=== PATIENT | female | born 1935 | race Two or more races ===

== ENCOUNTER 2022-10-09 04:39 | Inpatient (IN) | payer MEDICARE, OTHER ==
[~2022-10-09] VITALS: Ht 152.4 cm; Wt 54.0 kg
[2022-10-09 06:10] VITALS: PULSE 75; RESP 18; O2SAT 97
[2022-10-09 06:51] LABS: Hemoglobin 13.4 g/dL (12.2-16.2); Mean Corpuscular Hgb Conc. 33.3 g/dL (32.0-36.0)
[2022-10-09 06:53] LABS: Hematocrit 40.2 % (36.0-46.0); Mean Corpuscular Hemoglobin 29.4 pg (28.0-32.0); Mean Corpuscular Volume 88.3 fL (80.0-100.0); Red Blood Cells 4.56 10^6/uL (4.0-5.20); Red Cell Distribution Width 17.6 % (11.8-14.3)
[2022-10-09 07:03] LABS: Albumin 2.3 g/dL (3.4-5.0); Calcium 7.4 mg/dL (8.5-10.1); Magnesium 1.8 mg/dL (1.6-2.6); Potassium 3.3 mmol/L (3.5-5.1)
[2022-10-09 07:07] LABS: BUN/Creatinine Ratio 18.4 (10.0-20.0); Bilirubin, Total 0.8 mg/dL (0.2-1.0); Total Protein 5.2 g/dL (6.4-8.2)
[2022-10-09 07:15] LABS: White Blood Cell 36.5 10^3/uL (4.4-10.8)
[2022-10-09] MEDS ORDERED: SODIUM CHLORIDE 0.9% 1,000 ML IV ONE (07:15)
[2022-10-09] MEDS ORDERED: SODIUM CHLORIDE 0.9% 500 ML IVB ONE (07:15)
[2022-10-09 07:16] LABS: Basophils % (manual) 0 (0.0-2.0); Blast Cells 0; Eosinophils % (manual) 0 (0-7); Metamyelocytes % 0; Myelocytes % 0; Promyelocytes % 0; Reactive Lymphocytes 0
[2022-10-09 07:48] VITALS: PULSE 73; RESP 18; O2SAT 93
[2022-10-09 08:29] LABS: Urine Bacteria NONE SEEN /hpf (None Seen); Urine Blood Negative /uL (Negative); Urine Hyaline Cast MOD /lpf (0 - 2); Urine Mucus FEW (None Seen); Urine WBC 9 /hpf (0 - 5)
[2022-10-09 09:32] LABS: Band Neutrophils % (manual) 9; Lymphocytes % (manual) 3 (10.0-50.0); Monocytes % (manual) 4 (0-12)
[2022-10-09] MEDS ORDERED: VANCOMYCIN HCL 500MG/5ML ORAL SOL PO ONE (11:00)
[2022-10-09] MEDS ORDERED: metroNIDAZOLE 500MG/100ML 100 ML IV ONE (11:00)
[2022-10-09] MEDS ORDERED: POTASSIUM EFFERVESENT TAB 25 MEQ PO ONE (11:00)
[2022-10-09] MEDS ORDERED: MORPHINE SULFATE INJ 2 MG/ml SYRG IV PRN (12:30)
[2022-10-09] MEDS ORDERED: ACETAMINOPHEN 325 MG TAB PO PRN (12:30)
[2022-10-09] MEDS ORDERED: ONDANSETRON HCL 4 MG/2 ML VIAL IV PRN (12:30)
[2022-10-09] MEDS ORDERED: NITROGLYCERIN 0.4 MG SL TAB SL PRN (12:30)
[2022-10-09] MEDS ORDERED: POTA10TA51 PO (12:52)
[2022-10-09] MEDS ORDERED: OMEP20TA PO (12:52)
[2022-10-09] MEDS ORDERED: ATOR20TA50 PO (12:55)
[2022-10-09] MEDS ORDERED: CARV3.1240 PO (12:55)
[2022-10-09] MEDS ORDERED: FER325T PO (12:55)
[2022-10-09] MEDS ORDERED: LEVO25TA6 PO (12:55)
[2022-10-09] MEDS ORDERED: ASPI1TAB20 PO (12:55)
[2022-10-09] MEDS ORDERED: LOSA100T58 PO (12:55)
[2022-10-09] MEDS ORDERED: FURO20TA3 PO (12:55)
[2022-10-09] MEDS: metroNIDAZOLE 500MG/100ML 100 ML IV SCH ×2 (17:30→21:51)
[2022-10-09] MEDS: SODIUM CHLORIDE 0.9% 1,000 ML IV SCH (17:30)
[2022-10-09] MEDS: VANCOMYCIN HCL 125MG/5ML ORAL SOL PO SCH ×2 (17:32→22:00)
[2022-10-09 19:50] VITALS: PULSE 85; RESP 20; O2SAT 95
[2022-10-09] MEDS: CARVEDILOL 3.125 MG TAB PO SCH (21:53)
[2022-10-10] VITALS (8 sets, daily range): BP systolic 91–154; BP diastolic 51–66; PULSE 68–79; RESP 16–21; TEMP 97.5–98; O2SAT 93–94
[2022-10-10] MEDS: SODIUM CHLORIDE 0.9% 1,000 ML IV SCH ×2 (05:10→22:59)
[2022-10-10] MEDS: VANCOMYCIN HCL 125MG/5ML ORAL SOL PO SCH ×4 (06:00→22:59)
[2022-10-10 06:16] LABS: Hemoglobin 13.3 g/dL (12.2-16.2); Red Cell Distribution Width 17.5 % (11.8-14.3)
[2022-10-10 06:17] LABS: Calcium 7.3 mg/dL (8.5-10.1); Potassium 3.3 mmol/L (3.5-5.1)
[2022-10-10 06:23] LABS: Albumin 1.8 g/dL (3.4-5.0); Bilirubin, Total 0.6 mg/dL (0.2-1.0); Total Protein 4.9 g/dL (6.4-8.2)
[2022-10-10 06:29] LABS: Hematocrit 40.2 % (36.0-46.0); Mean Corpuscular Hemoglobin 29.4 pg (28.0-32.0); Mean Corpuscular Hgb Conc. 33.1 g/dL (32.0-36.0); Mean Corpuscular Volume 88.8 fL (80.0-100.0); Red Blood Cells 4.52 10^6/uL (4.0-5.20)
[2022-10-10 06:35] LABS: White Blood Cell 33.8 10^3/uL (4.4-10.8)
[2022-10-10 06:36] LABS: Basophils % (manual) 0 (0.0-2.0); Blast Cells 0; Eosinophils % (manual) 0 (0-7); Metamyelocytes % 0; Myelocytes % 0; Promyelocytes % 0; Reactive Lymphocytes 0
[2022-10-10] MEDS: metroNIDAZOLE 500MG/100ML 100 ML IV SCH ×3 (07:10→22:59)
[2022-10-10] MEDS: LEVOTHYROXINE SODIUM 25 MCG TAB PO SCH (07:16)
[2022-10-10 08:21] LABS: Band Neutrophils % (manual) 8; Lymphocytes % (manual) 3 (10.0-50.0); Monocytes % (manual) 3 (0-12)
[2022-10-10] MEDS: ASPirin-EC 81 mg tab PO SCH (09:13)
[2022-10-10] MEDS: FERROUS SULFATE 325mg EC TAB PO SCH (09:14)
[2022-10-10] MEDS: PANTOPRAZOLE 40 MG TAB PO SCH (09:15)
[2022-10-10] MEDS: ATORVASTATIN 20 MG TAB PO SCH (09:16)
[2022-10-10] MEDS: LOSARTAN POTASSIUM 50 MG TAB PO SCH (09:18)
[2022-10-10] MEDS: CARVEDILOL 3.125 MG TAB PO SCH ×2 (09:18→23:01)
[2022-10-10] MEDS ORDERED: ONDANSETRON HCL 4 MG/2 ML VIAL ONE (09:49)
[2022-10-10] MEDS ORDERED: FLORASTOR (S. BOULARDII) 250 MG CAP PO SCH (10:00)
[2022-10-10] MEDS ORDERED: VANCOMYCIN PER PHARMACY 0 MG IV SCH (12:45)
[2022-10-10] MEDS ORDERED: VANCOMYCIN 1GM/250ML 250 ML IV ONE (12:45)
[2022-10-10] MEDS ORDERED: cefTRIAXone 1GM/50ML D5W 50 ML IV ONE (12:45)
[2022-10-10] MEDS: FLORASTOR (S. BOULARDII) 250 MG CAP PO SCH (22:59)
[2022-10-11] VITALS (7 sets, daily range): BP systolic 104–139; BP diastolic 49–71; PULSE 54–71; RESP 18–20; TEMP 97.7–98; O2SAT 93–96
[2022-10-11 03:24] LABS: BUN/Creatinine Ratio 28.2 (10.0-20.0); Calcium 7.2 mg/dL (8.5-10.1); Magnesium 1.9 mg/dL (1.6-2.6); Potassium 3.1 mmol/L (3.5-5.1)
[2022-10-11] MEDS: VANCOMYCIN HCL 125MG/5ML ORAL SOL PO SCH ×4 (05:04→22:16)
[2022-10-11] MEDS: LEVOTHYROXINE SODIUM 25 MCG TAB PO SCH (05:04)
[2022-10-11] MEDS: metroNIDAZOLE 500MG/100ML 100 ML IV SCH ×3 (05:04→22:16)
[2022-10-11] MEDS ORDERED: POTASSIUM CHL 20 Meq TABLET PO ONE ×2 (05:45→10:45)
[2022-10-11] MEDS ORDERED: CALCIUM GLUC 1,000mg/50ml-NS 50 ML IV ONE (05:45)
[2022-10-11 06:03] LABS: Basophils # (auto) 0.1 10 ^3/uL (0-0.2); Basophils % (auto) 0.4 % (0.0-2.0); Eosinophils # (auto) 0 10 ^3/uL (0-0.8); Eosinophils % (auto) 0.1 % (0.0-7.0); Hematocrit 34.8 % (36.0-46.0); Hemoglobin 11.4 g/dL (12.2-16.2); Lymphocytes # (auto) 0.9 10 ^3/uL (0.4-5.4); Lymphocytes % (auto) 4.6 % (10.0-50.0); Mean Corpuscular Hemoglobin 29.4 pg (28.0-32.0); Mean Corpuscular Hgb Conc. 32.8 g/dL (32.0-36.0); Mean Corpuscular Volume 89.6 fL (80.0-100.0); Monocytes # (auto) 0.6 10 ^3/uL (0-1.3); Monocytes % (auto) 2.8 % (0.0-12.0); Neutrophils # (auto) 18.4 10 ^3/uL (1.6-8.6); Neutrophils % (auto) 92.1 % (37.0-80.0); Red Blood Cells 3.88 10^6/uL (4.0-5.20); Red Cell Distribution Width 17.5 % (11.8-14.3)
[2022-10-11 06:36] LABS: Albumin 1.5 g/dL (3.4-5.0); BUN/Creatinine Ratio 32.5 (10.0-20.0); Bilirubin, Total 0.3 mg/dL (0.2-1.0); Calcium 6.3 mg/dL (8.5-10.1); Total Protein 3.9 g/dL (6.4-8.2)
[2022-10-11 06:40] LABS: Potassium 2.7 mmol/L (3.5-5.1)
[2022-10-11] MEDS: cefTRIAXone 1GM/50ML D5W 50 ML IV SCH (10:01)
[2022-10-11] MEDS: FLORASTOR (S. BOULARDII) 250 MG CAP PO SCH ×2 (10:02→22:15)
[2022-10-11] MEDS: FERROUS SULFATE 325mg EC TAB PO SCH (10:02)
[2022-10-11] MEDS: ASPirin-EC 81 mg tab PO SCH (10:02)
[2022-10-11] MEDS: PANTOPRAZOLE 40 MG TAB PO SCH (10:03)
[2022-10-11] MEDS: ATORVASTATIN 20 MG TAB PO SCH (10:03)
[2022-10-11] MEDS: CARVEDILOL 3.125 MG TAB PO SCH ×2 (10:04→22:16)
[2022-10-11] MEDS: LOSARTAN POTASSIUM 50 MG TAB PO SCH (10:05)
[2022-10-11] MEDS: VANCOMYCIN 500 MG in D5W 5% 100 ML IV SCH (14:13)
[2022-10-11] MEDS: SODIUM CHLORIDE 0.9% 1,000 ML IV SCH (15:01)
[2022-10-12 04:52] VITALS: BP 121/61; PULSE 64; RESP 18; TEMP 97.8; O2SAT 95
[2022-10-12] MEDS: metroNIDAZOLE 500MG/100ML 100 ML IV SCH ×3 (05:46→21:58)
[2022-10-12] MEDS: VANCOMYCIN HCL 125MG/5ML ORAL SOL PO SCH ×4 (05:47→21:57)
[2022-10-12 06:15] LABS: Basophils # (auto) 0 10 ^3/uL (0-0.2); Basophils % (auto) 0.3 % (0.0-2.0); Eosinophils # (auto) 0.1 10 ^3/uL (0-0.8); Eosinophils % (auto) 0.6 % (0.0-7.0); Hematocrit 41.4 % (36.0-46.0); Hemoglobin 13.4 g/dL (12.2-16.2); Lymphocytes % (auto) 7.3 % (10.0-50.0); Mean Corpuscular Hemoglobin 29.3 pg (28.0-32.0); Mean Corpuscular Hgb Conc. 32.5 g/dL (32.0-36.0); Mean Corpuscular Volume 90.2 fL (80.0-100.0); Monocytes # (auto) 0.6 10 ^3/uL (0-1.3); Monocytes % (auto) 4.7 % (0.0-12.0); Neutrophils # (auto) 11.6 10 ^3/uL (1.6-8.6); Neutrophils % (auto) 87.1 % (37.0-80.0); Nucleated Red Blood Cells % 0.1 %; Red Blood Cells 4.59 10^6/uL (4.0-5.20); Red Cell Distribution Width 17.7 % (11.8-14.3); White Blood Cell 13.3 10^3/uL (4.4-10.8)
[2022-10-12] MEDS: LEVOTHYROXINE SODIUM 25 MCG TAB PO SCH (06:33)
[2022-10-12 06:34] LABS: Albumin 1.8 g/dL (3.4-5.0); Calcium 7.4 mg/dL (8.5-10.1); Potassium 4.5 mmol/L (3.5-5.1)
[2022-10-12 06:37] LABS: Bilirubin, Total 0.3 mg/dL (0.2-1.0); Total Protein 4.6 g/dL (6.4-8.2)
[2022-10-12] MEDS: SODIUM CHLORIDE 0.9% 1,000 ML IV SCH ×2 (07:10→18:43)
[2022-10-12 08:00] VITALS: BP 129/66; PULSE 65; PULSE 67; RESP 16; TEMP 98.1; O2SAT 97
[2022-10-12 08:58] VITALS: BP 129/66; PULSE 67; RESP 16; TEMP 98.1; O2SAT 97
[2022-10-12] MEDS: cefTRIAXone 1GM/50ML D5W 50 ML IV SCH (10:34)
[2022-10-12] MEDS: FERROUS SULFATE 325mg EC TAB PO SCH (10:34)
[2022-10-12] MEDS: FLORASTOR (S. BOULARDII) 250 MG CAP PO SCH ×2 (10:34→21:56)
[2022-10-12] MEDS: ATORVASTATIN 20 MG TAB PO SCH (10:34)
[2022-10-12] MEDS: LOSARTAN POTASSIUM 50 MG TAB PO SCH (10:35)
[2022-10-12] MEDS: CARVEDILOL 3.125 MG TAB PO SCH ×2 (10:35→21:57)
[2022-10-12] MEDS: ASPirin-EC 81 mg tab PO SCH (10:35)
[2022-10-12 13:00] VITALS: BP 142/64; PULSE 69; RESP 17; TEMP 97.2; O2SAT 94
[2022-10-12] MEDS: ALBUMIN 25% 100 ML IV SCH ×2 (13:10→18:43)
[2022-10-12] MEDS: VANCOMYCIN 500 MG in D5W 5% 100 ML IV SCH (14:12)
[2022-10-12 17:00] VITALS: BP 133/59; PULSE 61; RESP 16; TEMP 97.9; O2SAT 95
[2022-10-12 20:00] VITALS: BP 155/69; PULSE 66; RESP 16; TEMP 97.9; O2SAT 97
[2022-10-13] VITALS (7 sets, daily range): BP systolic 136–175; BP diastolic 67–79; PULSE 70–79; RESP 16–19; TEMP 97.6–98.9; O2SAT 93–98
[2022-10-13] MEDS: ALBUMIN 25% 100 ML IV SCH (03:18)
[2022-10-13] MEDS: metroNIDAZOLE 500MG/100ML 100 ML IV SCH ×2 (05:32→06:00)
[2022-10-13] MEDS: VANCOMYCIN HCL 125MG/5ML ORAL SOL PO SCH (05:32)
[2022-10-13] MEDS ORDERED: hydrALAZINE HCL 20 MG/ML VL IV ONE (06:30)
[2022-10-13] MEDS: LEVOTHYROXINE SODIUM 25 MCG TAB PO SCH (07:03)
[2022-10-13 07:29] LABS: Albumin 2.6 g/dL (3.4-5.0); Potassium 4.4 mmol/L (3.5-5.1)
[2022-10-13 07:32] LABS: BUN/Creatinine Ratio 27.8 (10.0-20.0); Bilirubin, Total 0.6 mg/dL (0.2-1.0); Total Protein 4.3 g/dL (6.4-8.2)
[2022-10-13] MEDS: cefTRIAXone 1GM/50ML D5W 50 ML IV SCH (10:09)
[2022-10-13] MEDS: CARVEDILOL 3.125 MG TAB PO SCH ×2 (10:09→22:20)
[2022-10-13] MEDS: ATORVASTATIN 20 MG TAB PO SCH (10:10)
[2022-10-13] MEDS: FLORASTOR (S. BOULARDII) 250 MG CAP PO SCH ×2 (10:10→22:20)
[2022-10-13] MEDS: LOSARTAN POTASSIUM 50 MG TAB PO SCH (10:10)
[2022-10-13] MEDS: FERROUS SULFATE 325mg EC TAB PO SCH (10:10)
[2022-10-13] MEDS: ASPirin-EC 81 mg tab PO SCH (10:10)
[2022-10-13] MEDS ORDERED: CHOLESTYRAMINE 4 GM POWDER PO ONE (11:45)
[2022-10-13 15:51] LABS: Basophils # (auto) 0 10 ^3/uL (0-0.2); Basophils % (auto) 0.3 % (0.0-2.0); Eosinophils # (auto) 0 10 ^3/uL (0-0.8); Eosinophils % (auto) 0.4 % (0.0-7.0); Hematocrit 40.6 % (36.0-46.0); Hemoglobin 13.1 g/dL (12.2-16.2); Lymphocytes # (auto) 0.8 10 ^3/uL (0.4-5.4); Lymphocytes % (auto) 10.1 % (10.0-50.0); Mean Corpuscular Hgb Conc. 32.3 g/dL (32.0-36.0); Mean Corpuscular Volume 89.8 fL (80.0-100.0); Monocytes # (auto) 0.4 10 ^3/uL (0-1.3); Monocytes % (auto) 5.7 % (0.0-12.0); Neutrophils # (auto) 6.4 10 ^3/uL (1.6-8.6); Neutrophils % (auto) 83.5 % (37.0-80.0); Nucleated Red Blood Cells % 0.2 %; Red Blood Cells 4.52 10^6/uL (4.0-5.20); Red Cell Distribution Width 17.1 % (11.8-14.3); White Blood Cell 7.7 10^3/uL (4.4-10.8)
[2022-10-13] MEDS: SODIUM CHLORIDE 0.9% 1,000 ML IV SCH (16:30)
[2022-10-13] MEDS ORDERED: ZOLPIDEM TARTRATE 5 MG TAB PO PRN (18:00)
[2022-10-14 05:00] VITALS: BP 106/62; PULSE 78; RESP 18; TEMP 97.5; O2SAT 93
[2022-10-14 06:06] LABS: Potassium 4.2 mmol/L (3.5-5.1)
[2022-10-14 06:13] LABS: Albumin 2.5 g/dL (3.4-5.0); BUN/Creatinine Ratio 22.4 (10.0-20.0); Bilirubin, Total 0.4 mg/dL (0.2-1.0); Calcium 7.2 mg/dL (8.5-10.1); Total Protein 4.2 g/dL (6.4-8.2)
[2022-10-14 06:19] LABS: Basophils # (auto) 0.1 10 ^3/uL (0-0.2); Basophils % (auto) 0.9 % (0.0-2.0); Eosinophils # (auto) 0 10 ^3/uL (0-0.8); Eosinophils % (auto) 0.1 % (0.0-7.0); Hematocrit 38.7 % (36.0-46.0); Hemoglobin 12.9 g/dL (12.2-16.2); Lymphocytes # (auto) 0.7 10 ^3/uL (0.4-5.4); Lymphocytes % (auto) 8.5 % (10.0-50.0); Mean Corpuscular Hemoglobin 30.4 pg (28.0-32.0); Mean Corpuscular Hgb Conc. 33.4 g/dL (32.0-36.0); Mean Corpuscular Volume 90.9 fL (80.0-100.0); Monocytes # (auto) 0.4 10 ^3/uL (0-1.3); Monocytes % (auto) 5.1 % (0.0-12.0); Neutrophils # (auto) 7.4 10 ^3/uL (1.6-8.6); Neutrophils % (auto) 85.4 % (37.0-80.0); Nucleated Red Blood Cells % 0.2 %; Red Blood Cells 4.26 10^6/uL (4.0-5.20); Red Cell Distribution Width 17.1 % (11.8-14.3); White Blood Cell 8.7 10^3/uL (4.4-10.8)
[2022-10-14] MEDS: LEVOTHYROXINE SODIUM 25 MCG TAB PO SCH (06:25)
[2022-10-14 08:00] VITALS: BP 122/65; PULSE 74; RESP 20; TEMP 98.5; O2SAT 95
[2022-10-14 08:35] VITALS: BP 122/65; PULSE 74; RESP 20; TEMP 98.5; O2SAT 95
[2022-10-14] MEDS: SODIUM CHLORIDE 0.9% 1,000 ML IV SCH (09:10)
[2022-10-14] MEDS: FLORASTOR (S. BOULARDII) 250 MG CAP PO SCH (10:39)
[2022-10-14] MEDS: ASPirin-EC 81 mg tab PO SCH (10:40)
[2022-10-14] MEDS: ATORVASTATIN 20 MG TAB PO SCH (10:40)
[2022-10-14] MEDS: CARVEDILOL 3.125 MG TAB PO SCH (10:40)
[2022-10-14] MEDS: FERROUS SULFATE 325mg EC TAB PO SCH (10:40)
[2022-10-14] MEDS: LOSARTAN POTASSIUM 50 MG TAB PO SCH (10:40)
[2022-10-14] MEDS: cefTRIAXone 1GM/50ML D5W 50 ML IV SCH (10:40)
[2022-10-14] MEDS ORDERED: CHOLESTYRAMINE 4 GM POWDER GT SCH (11:00)
[2022-10-14 13:05] VITALS: BP 138/81; PULSE 83; RESP 20; TEMP 97.8; O2SAT 96
[2022-10-14] MEDS ORDERED: AMOXICILLIN TRIHYDRATE 250 MG CAP PO SCH (14:00)
[2022-10-14 16:42] VITALS: BP 146/77; PULSE 83; RESP 20; TEMP 97.7; O2SAT 97
[2022-10-14] MEDS ORDERED: LIDOCAINE 1% (LOCAL ANESTH.) PF 5ml SDV ID ONE (18:30)
[2022-10-14 19:21] LABS: INR 1.28 (0.9-1.15)
[2022-10-14] MEDS ORDERED: SODIUM CHLOR 0.9% PF (SALINE LOCK) 10ML VIAL/SYR IV SCH (22:00)
== END 2022-10-14 19:20 | DRG 871 ==
LOC: ER 04:39 → TELE 12:30 → TELE-WESTW 23:10
PROVIDERS: ADMIT Family Medicine; ATTEND Family Medicine
PROC: 02HV33Z Insertion of Infusion Device into Superior Vena Cava, Percutaneous Approach (ICD-10-PCS; principal; 2022-10-14)
PROC: B548ZZA Ultrasonography of Superior Vena Cava, Guidance (ICD-10-PCS; 2022-10-14)
DX: A02.1 Salmonella sepsis (principal); E43 Unspecified severe protein-calorie malnutrition; R65.21 Severe sepsis with septic shock; G93.41 Metabolic encephalopathy; I13.0 Hypertensive heart and chronic kidney disease with heart failure and stage 1 through stage 4 chronic kidney disease, or unspecified chronic kidney disease; N39.0 Urinary tract infection, site not specified; A04.71 Enterocolitis due to Clostridium difficile, recurrent; E86.0 Dehydration; N18.30 Chronic kidney disease, stage 3 unspecified; Z96.653 Presence of artificial knee joint, bilateral; K21.9 Gastro-esophageal reflux disease without esophagitis; H40.9 Unspecified glaucoma; Z20.822 Contact with and (suspected) exposure to COVID-19; R73.9 Hyperglycemia, unspecified; E87.6 Hypokalemia; D32.9 Benign neoplasm of meninges, unspecified; E03.9 Hypothyroidism, unspecified; E78.00 Pure hypercholesterolemia, unspecified; H54.8 Legal blindness, as defined in USA; I50.9 Heart failure, unspecified; Z88.1 Allergy status to other antibiotic agents; Z68.23 Body mass index [BMI] 23.0-23.9, adult; Z85.3 Personal history of malignant neoplasm of breast; Z86.011 Personal history of benign neoplasm of the brain; Z86.19 Personal history of other infectious and parasitic diseases; Z90.11 Acquired absence of right breast and nipple
CPT/HCPCS: 36415; 36569; 70450; 71045; 71250; 72125; 74176; 80048; 80053; 81001; 82962; 83036; 83690; 83735; 83880; 84484; 85007; 85025; 85027; 85610; 87040; 87045; 87077; 87086; 87177; 87186; 87426; 87427; 87493; 93005; 97110; 97116; 97163; 97530; G0378; J0696; J2405; J3490; J7060; P9047

== ENCOUNTER 2022-12-07 15:26 | Inpatient (IN) | payer MEDICARE, OTHER ==
[~2022-12-07] VITALS: Ht 149.9 cm; Wt 50.5 kg
[~2022-12-07 15:26] MED LIST: ASPI1TAB20 PO; ATOR20TA50 PO; CARV3.1240 PO; FER325T PO; FURO20TA3 PO; LEVO25TA6 PO; LOSA100T58 PO; OMEP20TA PO; POTA10TA51 PO
[2022-12-07 16:16] VITALS: PULSE 45; RESP 13; O2SAT 96
[2022-12-07 16:17] LABS: Basophils # (auto) 0.1 10 ^3/uL (0-0.2); Basophils % (auto) 0.7 % (0.0-2.0); Eosinophils # (auto) 0.1 10 ^3/uL (0-0.8); Eosinophils % (auto) 0.7 % (0.0-7.0); Hematocrit 38.5 % (36.0-46.0); Hemoglobin 12.5 g/dL (12.2-16.2); Lymphocytes # (auto) 3.3 10 ^3/uL (0.4-5.4); Lymphocytes % (auto) 41.7 % (10.0-50.0); Mean Corpuscular Hemoglobin 28.6 pg (28.0-32.0); Mean Corpuscular Hgb Conc. 32.5 g/dL (32.0-36.0); Mean Corpuscular Volume 88.1 fL (80.0-100.0); Monocytes # (auto) 0.4 10 ^3/uL (0-1.3); Monocytes % (auto) 5.6 % (0.0-12.0); Neutrophils % (auto) 51.3 % (37.0-80.0); Nucleated Red Blood Cells % 0.2 %; Red Blood Cells 4.37 10^6/uL (4.0-5.20); Red Cell Distribution Width 19.3 % (11.8-14.3); White Blood Cell 7.8 10^3/uL (4.4-10.8)
[2022-12-07 16:31] LABS: Alanine Aminotransferase 19 U/L (7-40); Albumin 3.7 g/dL (3.2-4.8); Alkaline Phosphatase 111 U/L (46-116); Anion Gap 4 (5-15); Aspartate Aminotransferase 13 U/L (13-40); BUN/Creatinine Ratio 17.8 (10.0-20.0); Blood Urea Nitrogen 13 mg/dL (9-23); Calcium 9.7 mg/dL (8.7-10.4); Carbon Dioxide 32 mmol/L (20-30); Chloride 102 mmol/L (98-107); Glucose 195 mg/dL (74-106); Sodium 138 mmol/L (136-145)
[2022-12-07 16:32] LABS: Bilirubin, Total 0.3 mg/dL (0.2-1.0); Total Protein 6.2 g/dL (5.7-8.2)
[2022-12-07] MEDS ORDERED: SODIUM CHLORIDE 0.9% 500 ML IV ONE (20:45)
[2022-12-07] MEDS ORDERED: MORPHINE SULFATE INJ 2 MG/ml SYRG IV PRN (21:00)
[2022-12-07] MEDS ORDERED: NITROGLYCERIN 0.4 MG SL TAB SL PRN (21:00)
[2022-12-07] MEDS ORDERED: ONDANSETRON HCL 4 MG/2 ML VIAL IV PRN (21:00)
[2022-12-07] MEDS: ATORVASTATIN 20 MG TAB PO SCH (21:46)
[2022-12-08] VITALS (8 sets, daily range): BP systolic 124–181; BP diastolic 63–95; PULSE 45–60; RESP 16–18; TEMP 97.3–98; O2SAT 94–96
[2022-12-08] MEDS: LEVOTHYROXINE SODIUM 25 MCG TAB PO SCH (05:44)
[2022-12-08 07:52] LABS: Basophils # (auto) 0 10 ^3/uL (0-0.2); Basophils % (auto) 0.3 % (0.0-2.0); Eosinophils # (auto) 0.1 10 ^3/uL (0-0.8); Eosinophils % (auto) 1.8 % (0.0-7.0); Hematocrit 36.8 % (36.0-46.0); Hemoglobin 12.2 g/dL (12.2-16.2); Lymphocytes # (auto) 2.4 10 ^3/uL (0.4-5.4); Lymphocytes % (auto) 50.5 % (10.0-50.0); Mean Corpuscular Hemoglobin 29.3 pg (28.0-32.0); Mean Corpuscular Hgb Conc. 33.1 g/dL (32.0-36.0); Mean Corpuscular Volume 88.5 fL (80.0-100.0); Monocytes # (auto) 0.4 10 ^3/uL (0-1.3); Monocytes % (auto) 7.5 % (0.0-12.0); Neutrophils # (auto) 1.9 10 ^3/uL (1.6-8.6); Neutrophils % (auto) 39.9 % (37.0-80.0); Nucleated Red Blood Cells % 0.2 %; Red Blood Cells 4.16 10^6/uL (4.0-5.20); Red Cell Distribution Width 19.3 % (11.8-14.3); White Blood Cell 4.7 10^3/uL (4.4-10.8)
[2022-12-08 07:55] LABS: Chloride 105 mmol/L (98-107); Potassium 3.9 mmol/L (3.5-5.1); Sodium 141 mmol/L (136-145)
[2022-12-08 07:56] LABS: Anion Gap 4 (5-15); Calcium 9.2 mg/dL (8.5-10.1); Carbon Dioxide 32 mmol/L (20-30)
[2022-12-08 08:01] LABS: BUN/Creatinine Ratio 17.2 (10.0-20.0); Blood Urea Nitrogen 10 mg/dL (9-23); Glucose 158 mg/dL (74-106)
[2022-12-08] MEDS ORDERED: GLUCAGON EMERG KIT 1mg/1ml IV ONE (09:30)
[2022-12-08] MEDS: ENOXAPARIN SOD 30 MG/0.3 ML SYRINGE SC SCH (10:14)
[2022-12-08] MEDS: FUROSEMIDE 20 MG TAB PO SCH (10:16)
[2022-12-08] MEDS: ATORVASTATIN 20 MG TAB PO SCH (21:30)
[2022-12-08] MEDS ORDERED: cloNIDine HCL 0.1 MG TAB PO ONE (23:15)
[2022-12-09 04:55] VITALS: BP 114/57; PULSE 56; RESP 16; TEMP 98.1; O2SAT 100
[2022-12-09 06:06] LABS: Chloride 105 mmol/L (98-107); Potassium 3.8 mmol/L (3.5-5.1); Sodium 142 mmol/L (136-145)
[2022-12-09 06:07] LABS: Anion Gap 4 (5-15); Calcium 8.9 mg/dL (8.5-10.1); Carbon Dioxide 33 mmol/L (20-30)
[2022-12-09 06:12] LABS: BUN/Creatinine Ratio 21.8 (10.0-20.0); Blood Urea Nitrogen 12 mg/dL (9-23); Glucose 147 mg/dL (74-106)
[2022-12-09] MEDS: LEVOTHYROXINE SODIUM 25 MCG TAB PO SCH (06:16)
[2022-12-09 08:00] VITALS: PULSE 51; PULSE 53; RESP 16; O2SAT 100
[2022-12-09 08:59] VITALS: BP 142/73; PULSE 51; RESP 17; O2SAT 99
[2022-12-09] MEDS: ENOXAPARIN SOD 30 MG/0.3 ML SYRINGE SC SCH (10:00)
[2022-12-09] MEDS: FUROSEMIDE 20 MG TAB PO SCH (10:39)
[2022-12-09 13:00] VITALS: BP 115/63; PULSE 54; RESP 17; O2SAT 100
[2022-12-09 13:53] LABS: Urine Bacteria FEW /hpf (None Seen); Urine Blood Negative /uL (Negative); Urine Clarity HAZY (Clear); Urine Color Straw (Yellow); Urine Protein, UAD Negative (Negative); Urine Specific Gravity 1.006 (1.001-1.035); Urine Urobilinogen Normal (Negative); Urine WBC 54 /hpf (0 - 5)
[2022-12-09 17:00] VITALS: BP 127/61; PULSE 50; RESP 17; O2SAT 100
[2022-12-09 20:00] VITALS: PULSE 54; RESP 18; O2SAT 100
[2022-12-09] MEDS: ATORVASTATIN 20 MG TAB PO SCH (21:10)
[2022-12-10] VITALS (14 sets, daily range): BP systolic 86–168; BP diastolic 44–82; PULSE 56–83; RESP 12–22; TEMP 36.7; O2SAT 90–100
[2022-12-10 06:12] LABS: Basophils # (auto) 0 10 ^3/uL (0-0.2); Basophils % (auto) 0.1 % (0.0-2.0); Eosinophils # (auto) 0.1 10 ^3/uL (0-0.8); Eosinophils % (auto) 1.3 % (0.0-7.0); Hematocrit 37.3 % (36.0-46.0); Hemoglobin 12.4 g/dL (12.2-16.2); Lymphocytes # (auto) 2.8 10 ^3/uL (0.4-5.4); Mean Corpuscular Hemoglobin 29.2 pg (28.0-32.0); Mean Corpuscular Hgb Conc. 33.2 g/dL (32.0-36.0); Mean Corpuscular Volume 87.7 fL (80.0-100.0); Monocytes # (auto) 0.4 10 ^3/uL (0-1.3); Monocytes % (auto) 6.6 % (0.0-12.0); Neutrophils # (auto) 2.7 10 ^3/uL (1.6-8.6); Nucleated Red Blood Cells % 0.2 %; Red Blood Cells 4.25 10^6/uL (4.0-5.20); Red Cell Distribution Width 19.6 % (11.8-14.3)
[2022-12-10 06:15] LABS: Anion Gap 5 (5-15); Carbon Dioxide 32 mmol/L (20-30); Chloride 104 mmol/L (98-107); Potassium 3.5 mmol/L (3.5-5.1); Sodium 141 mmol/L (136-145)
[2022-12-10 06:21] LABS: BUN/Creatinine Ratio 21.3 (10.0-20.0); Blood Urea Nitrogen 13 mg/dL (9-23); Glucose 139 mg/dL (74-106)
[2022-12-10 06:23] LABS: INR 1.08 (0.9-1.15); Partial Thromboplastin Time 26.2 SEC (24.5-34.5); Prothrombin Time 11.3 sec (9.3-11.8)
[2022-12-10] MEDS: LEVOTHYROXINE SODIUM 25 MCG TAB PO SCH (06:24)
[2022-12-10] MEDS ORDERED: hydrALAZINE HCL 20 MG/ML VL IV ONE (06:45)
[2022-12-10] MEDS: FUROSEMIDE 20 MG TAB PO SCH (08:12)
[2022-12-10] MEDS: ENOXAPARIN SOD 30 MG/0.3 ML SYRINGE SC SCH (08:14)
[2022-12-10] MEDS ORDERED: LIDOCAINE 2%HCL (LOCAL ANESTH.) INJ 20ML MDV ONE ×2 (12:17→14:59)
[2022-12-10] MEDS ORDERED: VANCOMYCIN 1GM/250ML 250 ML IV ONE (14:30)
[2022-12-10] MEDS ORDERED: VANCOMYCIN HCL 1000 MG VL ONE (14:58)
[2022-12-10] MEDS ORDERED: MIDAZOLAM HCL 2MG/2ML 2ml VIAL (1mg/ml) ONE (14:59)
[2022-12-10] MEDS ORDERED: fentaNYL CITRATE 100 MCG/2 ML VL ONE (14:59)
[2022-12-10] MEDS ORDERED: IODIXANOL 320MG/ML 100ML BTL IV ONE (15:39)
[2022-12-10] MEDS ORDERED: hydrALAZINE HCL 20 MG/ML VL ONE (15:58)
[2022-12-10] MEDS ORDERED: ONDANSETRON HCL 4 MG/2 ML VIAL ONE (16:18)
[2022-12-10] MEDS: ATORVASTATIN 20 MG TAB PO SCH (21:48)
[2022-12-10] MEDS: APIXABAN 2.5 MG TAB PO SCH (21:48)
[2022-12-10] MEDS: AMIODARONE HCL 200 MG TAB PO SCH (21:49)
[2022-12-11] VITALS (8 sets, daily range): BP systolic 131–172; BP diastolic 61–81; PULSE 67–78; RESP 14–20; TEMP 37.1; O2SAT 93–99
[2022-12-11] MEDS: LEVOTHYROXINE SODIUM 25 MCG TAB PO SCH (06:46)
[2022-12-11 06:53] LABS: Basophils # (auto) 0 10 ^3/uL (0-0.2); Basophils % (auto) 0.1 % (0.0-2.0); Eosinophils # (auto) 0 10 ^3/uL (0-0.8); Eosinophils % (auto) 0.3 % (0.0-7.0); Hematocrit 38.8 % (36.0-46.0); Hemoglobin 12.5 g/dL (12.2-16.2); Lymphocytes # (auto) 2.5 10 ^3/uL (0.4-5.4); Lymphocytes % (auto) 29.7 % (10.0-50.0); Mean Corpuscular Hemoglobin 28.6 pg (28.0-32.0); Mean Corpuscular Hgb Conc. 32.2 g/dL (32.0-36.0); Mean Corpuscular Volume 88.8 fL (80.0-100.0); Monocytes # (auto) 0.6 10 ^3/uL (0-1.3); Monocytes % (auto) 7.1 % (0.0-12.0); Neutrophils # (auto) 5.4 10 ^3/uL (1.6-8.6); Neutrophils % (auto) 62.8 % (37.0-80.0); Red Blood Cells 4.38 10^6/uL (4.0-5.20); Red Cell Distribution Width 19.4 % (11.8-14.3); White Blood Cell 8.6 10^3/uL (4.4-10.8)
[2022-12-11 08:36] LABS: Anion Gap 6 (5-15); Calcium 9.2 mg/dL (8.5-10.1); Carbon Dioxide 30 mmol/L (20-30); Chloride 102 mmol/L (98-107); Potassium 3.9 mmol/L (3.5-5.1); Sodium 138 mmol/L (136-145)
[2022-12-11 08:41] LABS: Glucose 128 mg/dL (74-106)
[2022-12-11 08:42] LABS: BUN/Creatinine Ratio 15.8 (10.0-20.0); Blood Urea Nitrogen 9 mg/dL (9-23)
[2022-12-11] MEDS: AMIODARONE HCL 200 MG TAB PO SCH ×2 (08:45→21:33)
[2022-12-11] MEDS: ACETAMINOPHEN 325 MG TAB PO PRN (08:45)
[2022-12-11] MEDS: APIXABAN 2.5 MG TAB PO SCH ×2 (08:45→21:33)
[2022-12-11] MEDS: FUROSEMIDE 20 MG TAB PO SCH (08:45)
[2022-12-11] MEDS: ATORVASTATIN 20 MG TAB PO SCH (21:33)
[2022-12-12] VITALS (7 sets, daily range): BP systolic 113–133; BP diastolic 59–73; PULSE 55–90; RESP 17–20; TEMP 97.9–99.1; O2SAT 90–95
[2022-12-12] MEDS ORDERED: hydrALAZINE HCL 20 MG/ML VL IV PRN (02:00)
[2022-12-12] MEDS: ACETAMINOPHEN 325 MG TAB PO PRN ×2 (02:29→09:23)
[2022-12-12] MEDS: LEVOTHYROXINE SODIUM 25 MCG TAB PO SCH (06:29)
[2022-12-12] MEDS: ATORVASTATIN 20 MG TAB PO SCH (09:12)
[2022-12-12] MEDS: ASPirin-EC 81 mg tab PO SCH (09:13)
[2022-12-12] MEDS: AMIODARONE HCL 200 MG TAB PO SCH ×2 (09:13→21:45)
[2022-12-12] MEDS: FUROSEMIDE 20 MG TAB PO SCH (09:13)
[2022-12-12] MEDS: APIXABAN 2.5 MG TAB PO SCH ×2 (09:13→21:45)
[2022-12-12] MEDS: LOSARTAN POTASSIUM 50 MG TAB PO SCH (09:16)
[2022-12-12] MEDS ORDERED: MORPHINE SULFATE INJ 2 MG/ml SYRG IV PRN (15:00)
[2022-12-12] MEDS: HYDROcodone-ACET 5/325MG TAB PO PRN (15:07)
[2022-12-13 05:00] VITALS: BP 137/80; PULSE 83; RESP 19; TEMP 98.2; O2SAT 93
[2022-12-13] MEDS: LEVOTHYROXINE SODIUM 25 MCG TAB PO SCH (07:04)
[2022-12-13 08:00] VITALS: BP 133/79; PULSE 81; PULSE 88; RESP 16; TEMP 98.2; O2SAT 94
[2022-12-13] MEDS: HYDROcodone-ACET 5/325MG TAB PO PRN (09:06)
[2022-12-13] MEDS: ATORVASTATIN 20 MG TAB PO SCH (09:19)
[2022-12-13] MEDS: LOSARTAN POTASSIUM 50 MG TAB PO SCH (09:20)
[2022-12-13] MEDS: ASPirin-EC 81 mg tab PO SCH (09:20)
[2022-12-13] MEDS: AMIODARONE HCL 200 MG TAB PO SCH (09:20)
[2022-12-13] MEDS: FUROSEMIDE 20 MG TAB PO SCH (09:20)
[2022-12-13] MEDS: APIXABAN 2.5 MG TAB PO SCH (10:00)
[2022-12-13] MEDS ORDERED: APIX2.5T PO (10:50)
[2022-12-13 12:00] VITALS: BP 139/86; PULSE 84; RESP 16; TEMP 97.9; O2SAT 93
[2022-12-13 12:28] VITALS: BP 133/80; PULSE 88; RESP 16; TEMP 98.2; O2SAT 94
== END 2022-12-13 14:35 | disposition home health service (06) | DRG 243 ==
LOC: ER 15:26 → TELE 21:02 → TELE-WESTW 23:58
PROVIDERS: ADMIT Nurse Practitioner; ATTEND Internal Medicine
PROC: 05HC33Z Insertion of Infusion Device into Left Basilic Vein, Percutaneous Approach (ICD-10-PCS; 2022-12-07)
PROC: B54NZZA Ultrasonography of Left Upper Extremity Veins, Guidance (ICD-10-PCS; 2022-12-07)
PROC: 0JH606Z Insertion of Pacemaker, Dual Chamber into Chest Subcutaneous Tissue and Fascia, Open Approach (ICD-10-PCS; principal; 2022-12-10)
PROC: 02H63JZ Insertion of Pacemaker Lead into Right Atrium, Percutaneous Approach (ICD-10-PCS; 2022-12-10)
PROC: 02HK3JZ Insertion of Pacemaker Lead into Right Ventricle, Percutaneous Approach (ICD-10-PCS; 2022-12-10)
DX: I49.5 Sick sinus syndrome (principal); D68.69 Other thrombophilia; I50.42 Chronic combined systolic (congestive) and diastolic (congestive) heart failure; F03.90 Unspecified dementia, unspecified severity, without behavioral disturbance, psychotic disturbance, mood disturbance, and anxiety; E78.5 Hyperlipidemia, unspecified; E11.65 Type 2 diabetes mellitus with hyperglycemia; E03.9 Hypothyroidism, unspecified; H54.8 Legal blindness, as defined in USA; I48.0 Paroxysmal atrial fibrillation; Z96.653 Presence of artificial knee joint, bilateral; K21.9 Gastro-esophageal reflux disease without esophagitis; Z79.01 Long term (current) use of anticoagulants; Z79.899 Other long term (current) drug therapy; Z85.3 Personal history of malignant neoplasm of breast; Z90.11 Acquired absence of right breast and nipple; Z88.1 Allergy status to other antibiotic agents
CPT/HCPCS: 33208; 36415; 71045; 80048; 80053; 81001; 82962; 84443; 84484; 85025; 85610; 85730; 86850; 86900; 86901; 93005; 93306; 96360; 97110; 97116; 97163; 97530; 99152; G0378; J2250; J2405; Q9967

== ENCOUNTER → 2022-12-27 | Outpatient (CLI) | payer MEDICARE ==
[~2022-12-27] MED LIST changes: +APIX2.5T PO
[2022-12-27 09:41] LABS: Basophils # (auto) 0 10 ^3/uL (0-0.2); Basophils % (auto) 0.3 % (0.0-2.0); Eosinophils # (auto) 0.1 10 ^3/uL (0-0.8); Eosinophils % (auto) 0.9 % (0.0-7.0); Hematocrit 36.5 % (36.0-46.0); Hemoglobin 11.8 g/dL (12.2-16.2); Lymphocytes # (auto) 2.6 10 ^3/uL (0.4-5.4); Lymphocytes % (auto) 36.2 % (10.0-50.0); Mean Corpuscular Hemoglobin 28.8 pg (28.0-32.0); Mean Corpuscular Hgb Conc. 32.4 g/dL (32.0-36.0); Mean Corpuscular Volume 88.8 fL (80.0-100.0); Monocytes # (auto) 0.4 10 ^3/uL (0-1.3); Monocytes % (auto) 5.3 % (0.0-12.0); Neutrophils % (auto) 57.3 % (37.0-80.0); Nucleated Red Blood Cells % 0.2 %; Red Blood Cells 4.11 10^6/uL (4.0-5.20); Red Cell Distribution Width 19.4 % (11.8-14.3); White Blood Cell 7.1 10^3/uL (4.4-10.8)
[2022-12-27 10:37] LABS: Alanine Aminotransferase 11 U/L (7-40); Alkaline Phosphatase 76 U/L (46-116); Anion Gap 5 (5-15); BUN/Creatinine Ratio 21.6 (10.0-20.0); Blood Urea Nitrogen 16 mg/dL (9-23); Calcium 9.3 mg/dL (8.5-10.1); Carbon Dioxide 31 mmol/L (20-30); Chloride 104 mmol/L (98-107); Glucose 142 mg/dL (74-106); Sodium 140 mmol/L (136-145)
[2022-12-27 10:38] LABS: Albumin 3.6 g/dL (3.2-4.8)
[2022-12-27 10:39] LABS: Aspartate Aminotransferase 11 U/L (13-40); Bilirubin, Total 0.5 mg/dL (0.2-1.0); Total Protein 6.2 g/dL (5.7-8.2)
[2022-12-27 13:18] LABS: Magnesium 1.6 mg/dL (1.6-2.6)
[2022-12-28 08:06] LABS: Free Thyroxine Index 2.8 (1.2-4.9); Thyroxine (T4) 10.1 ug/dL (4.5-12.0)
== END | disposition home or self-care (01) ==
LOC: LAB 09:14
PROVIDERS: ATTEND Internal Medicine
DX: D64.9 Anemia, unspecified (principal); E03.9 Hypothyroidism, unspecified; E87.6 Hypokalemia; N39.0 Urinary tract infection, site not specified
CPT/HCPCS: 36415; 80053; 83735; 84443; 85025